=== PATIENT | female | born 1965 | race African-American/Black ===

== ENCOUNTER 2018-02-04 15:07 | Emergency (ER) | payer MEDICAID, OTHER ==
[2018-02-04] MEDS ORDERED: ACETAMINOPHEN 325 MG TABLET PO ONE (15:34)
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
--- NOTE | 2018-02-04 16:30 | RADIOLOGY REPORT (SQ) ---
EXAM DESCRIPTION: KNEE BILATERAL 1-2 VIEWS COMPLETED DATE/TIME: 02/04/2018 4:15 pm REASON FOR STUDY: fall COMPARISON: None. NUMBER OF VIEWS: Two-view right knee Two views left knee TECHNIQUE: AP and lateral radiographic images acquired of the right and left knee. LIMITATIONS: None. FINDINGS: MINERALIZATION: Normal. BONES: No acute fracture or dislocation. No worrisome bone lesions. JOINT: No effusion. SOFT TISSUES: No soft tissue swelling. No radio-opaque foreign body. OTHER: No other significant finding. IMPRESSION: NEGATIVE STUDY OF THE RIGHT AND LEFT KNEES. NO RADIOGRAPHIC EVIDENCE OF ACUTE INJURY. TECHNICAL DOCUMENTATION: JOB ID: [id number] [facility] [place]- All Rights Reserved Reading location - IP/workstation name: [email or web address]
[2018-02-04 16:32] LABS: AMORPHOUS SEDIMENT,URINE TRACE /HPF; APPEARANCE,URINE SLIGHTLY-CLOUDY; BILIRUBIN,URINE NEGATIVE (NEGATIVE); COLOR,URINE YELLOW; GLUCOSE, URINE NEGATIVE (NEGATIVE); KETONES,URINE NEGATIVE (NEGATIVE); LEUKOCYTE ESTERASE,URINE NEGATIVE (NEGATIVE); NITRITE,URINE NEGATIVE (NEGATIVE); PROTEIN,URINE NEGATIVE (NEGATIVE); URINE SPECIFIC GRAVITY 1.023
--- NOTE | 2018-02-04 16:32 | RADIOLOGY REPORT (SQ) ---
EXAM DESCRIPTION: L SPINE WHOLE COMPLETED DATE/TIME: 02/04/2018 4:15 pm REASON FOR STUDY: fall COMPARISON: 12/08/2015 NUMBER OF VIEWS: Five views including obliques. TECHNIQUE: AP, lateral, oblique, and sacral radiographic images acquired of the lumbar spine. LIMITATIONS: None. FINDINGS: MINERALIZATION: Normal. SEGMENTATION: Normal. No transitional anatomy. ALIGNMENT: Normal. VERTEBRAE: Maintained height. No fracture or worrisome bone lesion. DISCS: Mild disc space loss of height at L5-S1 and L4-5. POSTERIOR ELEMENTS: Pedicles and facets are intact. No pars defect or posterior arch defects. Mild bilateral facet arthropathy at L4-5 and L5-S1 HARDWARE: None in the spine. PARASPINAL SOFT TISSUES: Normal. PELVIS: Intact as visualized. No fractures or worrisome bone lesions. SI joints intact. OTHER: No other significant finding. IMPRESSION: No acute findings. TECHNICAL DOCUMENTATION: JOB ID: [id number] [employer]- All Rights Reserved Reading location - IP/workstation name: [email or web address]
[2018-02-04] MEDS ORDERED: LIDOCAINE 5% (700 MG) TRANSDERMAL ADH..PATCH TP ONE (16:43)
[2018-02-04 17:05] VITALS: BP 148/83
== END 2018-02-04 17:05 | disposition home or self-care (01) ==
LOC: ER 15:07
DX: M54.41 Lumbago with sciatica, right side (principal); M25.561 Pain in right knee; M25.562 Pain in left knee; W03.XXXA Other fall on same level due to collision with another person, initial encounter; Y99.0 Civilian activity done for income or pay; R50.9 Fever, unspecified; I10 Essential (primary) hypertension; Z85.43 Personal history of malignant neoplasm of ovary
CPT/HCPCS: 72110; 81001; 99283

== ENCOUNTER 2018-07-08 14:15 | Emergency (ER) | payer MEDICAID ==
--- NOTE | 2018-07-08 15:10 | RADIOLOGY REPORT (SQ) ---
EXAM DESCRIPTION: CHEST 2 VIEWS COMPLETED DATE/TIME: 07/08/2018 2:57 pm REASON FOR STUDY: palpitations COMPARISON: 11/23/2010 EXAM PARAMETERS: NUMBER OF VIEWS: two views TECHNIQUE: Digital Frontal and Lateral radiographic views of the chest acquired. RADIATION DOSE: NA LIMITATIONS: none FINDINGS: LUNGS AND PLEURA: No opacities, masses or pneumothorax. No pleural effusion. MEDIASTINUM AND HILAR STRUCTURES: No masses or contour abnormalities. HEART AND VASCULAR STRUCTURES: Heart normal size. No evidence for failure. BONES: No acute findings. HARDWARE: None in the chest. OTHER: No other significant finding. IMPRESSION: NO ACUTE RADIOGRAPHIC FINDING IN THE CHEST. TECHNICAL DOCUMENTATION: JOB ID: [id number] [employer]- All Rights Reserved Reading location - IP/workstation name: [email or web address]
[2018-07-08] MEDS ORDERED: ASPIRIN 81 MG TABLET, CHEWABLE PO ONE (15:20)
[2018-07-08] MEDS ORDERED: LISINOPRIL 10 MG TABLET PO ONE (15:56)
[2018-07-08] MEDS ORDERED: HYDROCHLOROTHIAZIDE 12.5 MG TABLET PO ONE (15:57)
--- NOTE | 2018-07-08 16:00 | ER Document Report ---
ED Blood Pressure Problem - General Mode of Arrival: Ambulatory Information source: Patient TRAVEL OUTSIDE OF THE [place] IN LAST 30 DAYS: No <TANYA CLARK - Last Filed: 07/08/18 16:15> <MEDHAT JOHNSON - Last Filed: 07/08/18 23:57> - General Chief Complaint: Chest Pain > 30 Stated Complaint: CHEST PAIN Time Seen by Provider: 07/08/18 15:19 Notes: 53-year-old female who presents to the emergency department today with complaints of elevated blood pressures. Patient states on Thursday at work her blood pressure was 177/101 and she had associated dizziness and a headache. Patient states today she went to an urgent care to get a note to be cleared to go back to work and after they performed an EKG she was sent here. Patient states she has continued to be dizzy with a headache over the last 2 or 3 days. Patient states she is out of her 12.5 mg lisinopril as her PCP, Mitul Pruitt , is no longer in the area. (TANYA CLARK) - Related Data Allergies/Adverse Reactions: No Known Allergies Allergy (Verified 07/08/18 14:16) Past Medical History - General Information source: Patient, [facility] Records - Social History Smoking Status: Former Smoker Cigarette use (# per day): No Frequency of alcohol use: Former drinker. None in 18 years. Lives with: Family Family History: Reviewed & Not Pertinent Patient has suicidal ideation: No Patient has homicidal ideation: No - Past Medical History Cardiac Medical History: Reports: Hx Hypertension Renal/ Medical History: Reports: Hx Ovarian Cysts Malignancy Medical History: Reports: Hx Ovarian Cancer - 1999 Past Surgical History: Reports: Hx Gynecologic Surgery, Hx Hysterectomy - Immunizations Hx Diphtheria, Pertussis, Tetanus Vaccination: Yes <TANYA CLARK - Last Filed: 07/08/18 16:15> Review of Systems - Review of Systems Constitutional: See HPI, Other - elevated blood pressures EENT: No symptoms reported Cardiovascular: See HPI, Dizziness Respiratory: No symptoms reported Gastrointestinal: No symptoms reported Genitourinary: No symptoms reported Female Genitourinary: No symptoms reported Musculoskeletal: No symptoms reported Skin: No symptoms reported Hematologic/Lymphatic: No symptoms reported Neurological/Psychological: See HPI, Headaches -: Yes All other systems reviewed and negative <TANYA CLARK - Last Filed: 07/08/18 16:15> Physical Exam - Vital signs Interpretation: Hypertensive - General General appearance: Appears well, Alert - HEENT Head: Normocephalic, Atraumatic Eyes: Normal Pupils: PERRL - Respiratory Respiratory status: No respiratory distress Chest status: Nontender Breath sounds: Normal Chest palpation: Normal - Cardiovascular Rhythm: Regular Heart sounds: Normal auscultation Murmur: No - Abdominal Inspection: Normal Distension: No distension Bowel sounds: Normal Tenderness: Nontender Organomegaly: No organomegaly - Back Back: Normal, Nontender - Extremities General upper extremity: Normal inspection, Nontender, Normal color, Normal ROM , Normal temperature General lower extremity: Normal inspection, Nontender, Normal color, Normal ROM , Normal temperature, Normal weight bearing. No: César's sign - Neurological Neuro grossly intact: Yes Cognition: Normal Orientation: AAOx4 [place] Coma Scale Eye Opening: Spontaneous [place] Coma Scale Verbal: Oriented [place] Coma Scale Motor: Obeys Commands [place] Coma Scale Total: 15 Speech: Normal Motor strength normal: LUE, RUE, LLE, RLE Sensory: Normal - Psychological Associated symptoms: Normal affect, Normal mood - Skin Skin Temperature: Warm Skin Moisture: Dry Skin Color: Normal <MEDHAT JOHNSON - Last Filed: 07/08/18 23:57> - Vital signs Vitals: Temp Pulse Resp BP Pulse Ox 98.1 F 64 16 167/91 H 99 07/08/18 14:36 07/08/18 14:36 07/08/18 14:36 07/08/18 14:36 07/08/18 14:36 Course - Laboratory Result Diagrams: 07/08/18 15:35 07/08/18 15:35 <TANYA CLARK - Last Filed: 07/08/18 16:15> - Laboratory Result Diagrams: 07/08/18 16:00 07/08/18 16:00 - Diagnostic Test Radiology reviewed: Reports reviewed - EKG Interpretation by [facility] EKG shows normal: Sinus rhythm Rate: Normal Rhythm: NSR <MEDHAT JOHNSON - Last Filed: 07/08/18 23:57> - Re-evaluation Re-evalutation: 07/08/18 Patient has been out of her blood pressure. Sent in from urgent care for chest pain for a month and high blood pressure. Repeat troponin and initial troponin negative. No acute changes on EKG. No symptoms in the emergency department. Blood pressure has down trended with initiation of patient's home medication. She will be discharged with a prescription for her previous blood pressure medication, lisinopril and hydrochlorothiazide. She is to follow-up with a primary care doctor when she is able. Understands and agrees with plan. Stable for discharge. Grateful for care (MEDHAT JOHNSON) - Vital Signs Vital signs: Temp Pulse Resp BP Pulse Ox 97.5 F 64 16 135/94 H 100 07/08/18 22:18 07/08/18 14:36 07/08/18 19:00 07/08/18 19:00 07/08/18 19:00 - Laboratory Laboratory results interpreted by me: 07/08/18 07/08/18 16:00 16:00 RDW 14.3 H Lymphocytes % 49.4 H Sodium 146.0 H Potassium 3.3 L Carbon Dioxide 33 H Creatine Kinase 137 H Total Protein 8.4 H Discharge <TANYA CLARK - Last Filed: 07/08/18 16:15> <EMDHAT JOHNSON - Last Filed: 07/08/18 23:57> - Discharge Clinical Impression: HTN (hypertension) Qualifiers: Hypertension type: unspecified Qualified Code(s): I10 - Essential (primary) hypertension Condition: Stable Disposition: HOME, SELF-CARE Instructions: High Blood Pressure ([facility]) Prescriptions: Lisinopril/Hydrochlorothiazide [Lisinopril-Hctz 10-12.5 mg Tab] 1 each PO DAILY #90 tablet Forms: Return to Work Scribe Attestation: 07/08/18 23:57 I personally performed the services described in the documentation, reviewed and edited the documentation which was dictated to the scribe in my presence, and it accurately records my words and actions. (MEDHAT JOHNSON) Scribe Documentation - Scribe Written by Jcarlos:: Jcarlos Rosas, 07/08/2018 1619 acting as scribe for :: Lonnie <TANYA CLARK - Last Filed: 07/08/18 16:15>
[2018-07-08 16:33] LABS: ABSOLUTE EOSINOPHILS # (AUTO) 0.1 10^3/uL (0.0-0.6); ABSOLUTE LYMPHOCYTES (AUTO) 3.3 10^3/uL (0.5-4.7); ABSOLUTE MONOCYTES (AUTO) 0.3 10^3/uL (0.1-1.4); ABSOLUTE NEUT (AUTO) 2.9 10^3/uL (1.7-8.2); BASOPHILS % (AUTO) 0.4 % (0-2); EOSINOPHILS % (AUTO) 1.4 % (0-6); HEMATOCRIT 38.5 % (36.0-47.0); HEMOGLOBIN 12.9 g/dL (12.0-15.5); LYMPHOCYTES % (AUTO) 49.4 % (13-45); MEAN CORPUSCULAR HEMOGLOBIN 28.1 pg (27.0-33.4); MEAN CORPUSCULAR HGB CONC 33.4 g/dL (32.0-36.0); MEAN CORPUSCULAR VOLUME 84 fl (80-97); MONOCYTES % (AUTO) 4.7 % (3-13); PLATELET COUNT 220 10^3/uL (150-450); RED BLOOD COUNT 4.58 10^6/uL (3.72-5.28); RED CELL DISTRIBUTION WIDTH 14.3 % (11.5-14.0); SEGMENTED NEUTROPHILS % (AUTO) 44.1 % (42-78); TOTAL CELLS COUNTED % (AUTO) 100 %; WHITE BLOOD COUNT 6.6 10^3/uL (4.0-10.5)
[2018-07-08 16:37] LABS: INTERNATIONAL RATION (INR) 0.92; PROTHROMBIN TIME 12.8 SEC (11.4-15.4)
[2018-07-08 16:47] LABS: ALANINE AMINOTRANSFERASE 19 U/L (9-52); ALBUMIN 4.7 g/dL (3.5-5.0); ALKALINE PHOSPHATASE 95 U/L (38-126); ANION GAP 11 (5-19); ASPARTATE AMINO TRANSFERASE 22 U/L (14-36); BILIRUBIN,DIRECT 0.2 mg/dL (0.0-0.4); BILIRUBIN,TOTAL 0.5 mg/dL (0.2-1.3); BLOOD UREA NITROGEN 12 mg/dL (7-20); CALCIUM 9.7 mg/dL (8.4-10.2); CARBON DIOXIDE 33 mmol/L (22-30); CHLORIDE 102 mmol/L (98-107); CREATINE KINASE 137 U/L (30-135); GLUCOSE 110 mg/dL (75-110); POTASSIUM 3.3 mmol/L (3.6-5.0); TOTAL PROTEIN 8.4 g/dL (6.3-8.2)
[2018-07-08 16:59] LABS: CREATINE KINASE MB 1.46 ng/mL (<4.55)
[2018-07-08 17:01] LABS: TROPONIN I < 0.012 ng/mL
[2018-07-08 19:27] VITALS: BP 135/94
--- NOTE | 2018-07-08 20:45 | EKG REPORT ---
SEVERITY:- ABNORMAL ECG - SINUS RHYTHM PROBABLE LEFT ATRIAL ABNORMALITY LEFT ANTERIOR FASCICULAR BLOCK LEFT VENTRICULAR HYPERTROPHY NONSPECIFIC T ABNORMALITIES, INFERIOR LEADS : Confirmed by: Tiesha Zaragoza MD 08-Jul-2018 20:44:15
== END 2018-07-08 22:24 | disposition home or self-care (01) ==
LOC: ER 14:15
DX: R07.9 Chest pain, unspecified (principal); I10 Essential (primary) hypertension; R42 Dizziness and giddiness; Z90.710 Acquired absence of both cervix and uterus
CPT/HCPCS: 36415; 71046; 80053; 82550; 82553; 84484; 85025; 85610; 93005; 93010; 99285

== ENCOUNTER → 2019-03-08 | Outpatient (CLI) | payer MEDICAID ==
--- NOTE | 2019-03-08 13:28 | RADIOLOGY REPORT (SQ) ---
EXAM DESCRIPTION: LUMBAR SPINE COMPLETE COMPLETED DATE/TIME: 03/08/2019 12:53 pm REASON FOR STUDY: LUMBAGO WITH SCIATICA, UNSPECIFIED SIDE M54.40 LUMBAGO WITH SCIATICA, UNSPECIFIED SIDE M17.0 BILATERAL PRIMARY OSTEOARTHRITIS OF KNEE COMPARISON: None. NUMBER OF VIEWS: Five views including obliques. TECHNIQUE: AP, lateral, oblique, and sacral radiographic images acquired of the lumbar spine. LIMITATIONS: None. FINDINGS: MINERALIZATION: Normal. SEGMENTATION: Normal. No transitional anatomy. ALIGNMENT: Normal. VERTEBRAE: Maintained height. No fracture or worrisome bone lesion. DISCS: Disc spaces are narrowed from L4-S1. POSTERIOR ELEMENTS: Pedicles and facets are intact. No pars defect or posterior arch defects. HARDWARE: None in the spine. PARASPINAL SOFT TISSUES: Normal. PELVIS: Intact as visualized. No fractures or worrisome bone lesions. SI joints intact. OTHER: No other significant finding. IMPRESSION: Degenerative disc disease. TECHNICAL DOCUMENTATION: JOB ID: [id number] [employer]- All Rights Reserved Reading location - IP/workstation name: [email or web address]
--- NOTE | 2019-03-08 13:29 | RADIOLOGY REPORT (SQ) ---
EXAM DESCRIPTION: KNEE BILAT AP UPRIGHT COMPLETED DATE/TIME: 03/08/2019 12:53 pm REASON FOR STUDY: BILATERAL PRIMARY OSTEOARTHRITIS OF KNEE M54.40 LUMBAGO WITH SCIATICA, UNSPECIFIE D SIDE M17.0 BILATERAL PRIMARY OSTEOARTHRITIS OF KNEE COMPARISON: None. NUMBER OF VIEWS: One view TECHNIQUE: AP standing bilateral knees. LIMITATIONS: None. FINDINGS: MINERALIZATION: Normal. RIGHT KNEE BONES: No acute fracture. No worrisome bone lesions. MEDIAL COMPARTMENT: No significant osteophytes. No joint space narrowing. No chondrocalcinosis. LATERAL COMPARTMENT: No significant osteophytes. No joint space narrowing. No chondrocalcinosis. PATELLOFEMORAL COMPARTMENT: No significant osteophytes. No joint space narrowing. No chondrocalc inosis. LEFT KNEE BONES: No acute fracture. No worrisome bone lesions. MEDIAL COMPARTMENT: No significant osteophytes. No joint space narrowing. No chondrocalcinosis. LATERAL COMPARTMENT: No significant osteophytes. No joint space narrowing. No chondrocalcinosis. PATELLOFEMORAL COMPARTMENT: No significant osteophytes. No joint space narrowing. No chondrocalc inosis. IMPRESSION: NEGATIVE STUDY OF THE STANDING LEFT AND RIGHT KNEES. NO SIGNIFICANT JOINT SPACE NARROWIN G OR OTHER SIGNS OF ARTHRITIS. TECHNICAL DOCUMENTATION: JOB ID: [id number] [employer]- All Rights Reserved Reading location - IP/workstation name: [email or web address]
== END ==
LOC: OD 12:23
PROVIDERS: ATTEND Internal Medicine
DX: M51.36 Other intervertebral disc degeneration, lumbar region (principal); M54.40 Lumbago with sciatica, unspecified side; M17.0 Bilateral primary osteoarthritis of knee
CPT/HCPCS: 72110; 73565

== ENCOUNTER 2019-03-21 22:25 | Emergency (ER) | payer MEDICAID ==
[2019-03-21 23:25] VITALS: BP 153/85
== END 2019-03-22 01:00 | disposition left against medical advice (07) ==
LOC: ER 22:25
DX: Z53.21 Procedure and treatment not carried out due to patient leaving prior to being seen by health care provider (principal); T78.40XA Allergy, unspecified, initial encounter

== ENCOUNTER 2019-03-27 14:43 | Emergency (ER) | payer OTHER, MEDICAID ==
[2019-03-27] MEDS ORDERED: ACETAMINOPHEN 325 MG TABLET PO ONE (16:50)
[2019-03-27] MEDS ORDERED: BENZONATATE 100 MG CAPSULE PO ONE (16:52)
[2019-03-27] MEDS ORDERED: DEXAMETHASONE SOD PHOS INJ 10 MG/1 ML VIAL IM ONE (16:55)
--- NOTE | 2019-03-27 16:56 | ER Document Report ---
ED General - General Chief Complaint: Pain All Over Stated Complaint: POSSIBLE ALLERGIC REACTION Time Seen by Provider: 03/27/19 16:33 Primary Care Provider: SHERITA MENDOZA MD [Primary Care Provider] - Follow up as needed Notes: Patient is a 53-year-old female with a history of hypertension who presents to the emergency department with body aches. Patient states that last Thursday night she checked into the emergency department for possible allergic reaction as she developed hives after taking ibuprofen and eating blue crab. Patient states that it was busy and she left prior to being seen. Patient states she was not treated but that the hives and rash did go away. Patient states she is continued to take the ibuprofen that was given to her by her primary care physician for back pain and arthritis without any allergic reaction or rash. Patient states that potentially could have been the blue crab. Patient states since Thursday she has had body aches, low back pain, productive cough with clear sputum, a feeling of congestion with runny nose, sore throat. Patient states she has had a decreased appetite. Patient denies abdominal pain. Patient denies diarrhea. Patient states that the cough is worse at night and is difficult to sleep as she is continuously coughing. Patient denies neck pain. Patient denies fever at home. TRAVEL OUTSIDE OF THE [place] IN LAST 30 DAYS: No - Related Data Allergies/Adverse Reactions: No Known Allergies Allergy (Verified 03/27/19 14:45) Past Medical History - General Information source: Patient - Social History Smoking Status: Never Smoker Lives with: Family Family History: Reviewed & Not Pertinent - Past Medical History Cardiac Medical History: Reports: Hx Hypertension Pulmonary Medical History: Reports: None EENT Medical History: Reports: None Neurological Medical History: Reports: None Endocrine Medical History: Reports: None Renal/ Medical History: Reports: Hx Ovarian Cysts. Denies: Hx Peritoneal Dialysis Malignancy Medical History: Reports: Hx Ovarian Cancer - 1999 GI Medical History: Reports: None Musculoskeletal Medical History: Reports None Skin Medical History: Reports None Psychiatric Medical History: Reports: None Traumatic Medical History: Reports: None Infectious Medical History: Reports: None Past Surgical History: Reports: Hx Gynecologic Surgery, Hx Hysterectomy - Immunizations Hx Diphtheria, Pertussis, Tetanus Vaccination: Yes Review of Systems - Review of Systems Constitutional: See HPI EENT: See HPI Cardiovascular: No symptoms reported Respiratory: See HPI Gastrointestinal: See HPI Genitourinary: No symptoms reported Female Genitourinary: No symptoms reported Musculoskeletal: See HPI Skin: No symptoms reported Hematologic/Lymphatic: No symptoms reported Neurological/Psychological: No symptoms reported Physical Exam - Vital signs Vitals: Temp Pulse Resp BP Pulse Ox 99.5 F 93 16 150/90 H 96 03/27/19 14:53 03/27/19 14:53 03/27/19 14:53 03/27/19 14:53 03/27/19 14:53 Interpretation: Hypertensive - Notes Notes: GENERAL: Well-appearing, well-nourished and in no acute distress. HEAD: Atraumatic, normocephalic. EYES: Pupils equal round and reactive to light, extraocular movements intact, sclera anicteric, conjunctiva are normal. ENT: Outer portion of the TM's reddened without bulging bilaterally, nares patent, oropharynx clear without exudates or edema. + tonsillar hypertrophy with exudate bilaterally, no uvula edema. Moist mucous membranes. NECK: Normal range of motion, supple, + cervical lymphadenopathy. or JVD. LUNGS: Breath sounds clear to auscultation bilaterally and equal. No wheezes or rales. Rhonchi present but cleared with cough. HEART: Regular rate and rhythm without murmurs, rubs or gallops. No reproducible chest pain. ABDOMEN: Soft, nontender, normoactive bowel sounds. No guarding, no rebound. No masses appreciated. BACK: No cervical, thoracic, lumbar midline tenderness. No saddle anesthesia, normal distal neurovascular exam. No CVA tenderness. GENITOURINARY: Deferred. EXTREMITIES: Normal range of motion, no pitting or edema. No clubbing or cyanosis. NEUROLOGICAL: Cranial nerves II through XII grossly intact. Normal speech, normal gait. PSYCH: Normal mood, normal affect. SKIN: Warm, Dry, normal turgor, no rashes or lesions noted. Course - Re-evaluation Re-evalutation: 03/27/19 18:00 Upon reevaluation patient is resting comfortably on stretcher. Patient's chest x-ray was suspicious for an pneumonia in the left upper lobe. I will treat the patient with doxycycline for 5 days and have her follow-up with Dr. Mendoza early this week as this is her primary care physician. I did discuss this with the patient and she is agrees with this plan. Patient to return to the emergency department for fever, shortness of breath or any other concerning signs or symptoms. I did inform the patient she had a small amount of blood in the urine without infection. I did inform the patient to follow-up with her primary care physician to have a repeat urinalysis performed. - Vital Signs Vital signs: Temp Pulse Resp BP Pulse Ox 100.1 F 93 16 150/90 H 96 03/27/19 16:05 03/27/19 14:53 03/27/19 14:53 03/27/19 14:53 03/27/19 14:53 - Laboratory Laboratory results interpreted by me: 03/27/19 16:55 Urine Protein 30 H Urine Blood MODERATE H Urine Urobilinogen 2.0 H - Diagnostic Test Radiology reviewed: Image reviewed, Reports reviewed Discharge - Discharge Clinical Impression: Chills, Sore throat (viral) Pneumonia Qualifiers: Pneumonia type: due to unspecified organism Laterality: left Lung location: upper lobe of lung Qualified Code(s): J18.1 - Lobar pneumonia, unspecified organism Pharyngitis Qualifiers: Pharyngitis/tonsillitis etiology: unspecified etiology Qualified Code(s): J02.9 - Acute pharyngitis, unspecified Condition: Stable Disposition: HOME, SELF-CARE Additional Instructions: Today he was seen in the emergency department for fever, chills, body aches and cough. The chest x-ray did show a pneumonia in the left upper lobe. He will be treated with a course of doxycycline. It is important to follow-up with your primary care physician Dr. Mendoza early this week for repeat evaluation. Please return to the emergency department for any worsening signs or symptoms to include high fever, shortness of breath, chest pain or any other concerning signs or symptoms. Please take Tylenol and ibuprofen as needed for body aches and chills. Doxycycline Doxycycline (Vibramycin, Doryx) is an antibiotic of the tetracycline family. This type of drug is useful for infections of the respiratory tract and genital tract, and is sometimes used for intestinal infections. Unlike most tetracyclines, doxycycline can be taken with food. It is longer acting, and (usually) less prone to side effects than regular tetracycline. Tetracycline antibiotics can stain immature teeth and SHOULD NOT BE TAKEN BY CHILDREN, NURSING MOTHERS, OR WOMEN. Tetracyclines can make you more prone to sunburn. Abdominal cramping, nausea, and diarrhea are occasional side effects. Women may experience vaginal yeast infections. Call the doctor at once if you develop hives, itching, shortness of breath, or lightheadedness. Pneumonia Your examination indicates that you have pneumonia. This is an infection of the lung tissue, usually caused by bacteria or a virus. Symptoms include cough, fever, shaking chills, chest pain, shortness of breath, and coughing up bloody sputum. Treatment for bacterial pneumonia includes rest, antibiotics for 10 to 14 days, increasing your clear liquid intake, a cool mist humidifier at your bedside, and fever medication. Often, a repeat chest X-ray is performed in a few weeks--even if you feel better--to ascertain whether the infection has completely resolved and no underlying lung problem is present. You should call the physician if you develop persistent vomiting, high fever that does not respond to fever medication, increasing shortness of breath, confusion, or lethargy. Also, failure to improve within two to three days is an indication for re-examination. Prescriptions: Benzonatate [Tessalon Perles 100 mg Capsule] 100 mg PO Q8HP PRN #40 capsule PRN Reason: Doxycycline Hyclate 100 mg PO BID #10 capsule Referrals: SHERITA MENDOZA MD [Primary Care Provider] - Follow up as needed
--- NOTE | 2019-03-27 17:14 | RADIOLOGY REPORT (SQ) ---
EXAM DESCRIPTION: CHEST 2 VIEWS COMPLETED DATE/TIME: 03/27/2019 5:05 pm REASON FOR STUDY: productive cough, low grade fever COMPARISON: 07/08/2018 TECHNIQUE: Frontal and lateral radiographic views of the chest acquired. NUMBER OF VIEWS: Two view. LIMITATIONS: None. FINDINGS: LUNGS AND PLEURA: No pneumothorax. Small area of patchy airspace disease in the left uppe r lobe. No pleural effusion. MEDIASTINUM AND HILAR STRUCTURES: Stable. HEART AND VASCULAR STRUCTURES: Stable. BONES: No acute findings. HARDWARE: None in the chest. OTHER: No other significant finding. IMPRESSION: Small area of patchy airspace disease in the left upper lobe. No pleural effusion. TECHNICAL DOCUMENTATION: JOB ID: [id number] [employer]- All Rights Reserved Reading location - IP/workstation name: [email or web address]
[2019-03-27 17:25] LABS: APPEARANCE,URINE SLIGHTLY-CLOUDY; BILIRUBIN,URINE NEGATIVE (NEGATIVE); COLOR,URINE AMBER; GLUCOSE, URINE NEGATIVE (NEGATIVE); KETONES,URINE NEGATIVE (NEGATIVE); LEUKOCYTE ESTERASE,URINE NEGATIVE (NEGATIVE); NITRITE,URINE NEGATIVE (NEGATIVE); PROTEIN,URINE 30 mg/dL (NEGATIVE); URINE SPECIFIC GRAVITY 1.023
[2019-03-27] MEDS ORDERED: DOXYCYCLINE HYCLATE 100 MG TABLET PO ONE (18:06)
[2019-03-27 18:15] VITALS: BP 154/90
== END 2019-03-27 18:20 | disposition home or self-care (01) ==
LOC: ER 14:43
DX: J02.8 Acute pharyngitis due to other specified organisms (principal); B97.89 Other viral agents as the cause of diseases classified elsewhere; J18.1 Lobar pneumonia, unspecified organism; J35.1 Hypertrophy of tonsils; R68.83 Chills (without fever); M54.5 Low back pain; R05 Cough; R09.89 Other specified symptoms and signs involving the circulatory and respiratory systems; R63.0 Anorexia; I10 Essential (primary) hypertension; M19.90 Unspecified osteoarthritis, unspecified site
CPT/HCPCS: 99283; 96372; 87070; 87880; 81001; 71046; J1100

== ENCOUNTER 2019-10-09 18:27 | Emergency (ER) | payer OTHER, MEDICAID ==
[2019-10-09] MEDS ORDERED: ASPIRIN 81 MG TABLET, CHEWABLE PO ONE (18:39)
--- NOTE | 2019-10-09 18:42 | ER Document Report ---
ED Medical Screen (RME) - General Chief Complaint: Chest Pain Stated Complaint: CHEST PAIN Time Seen by Provider: 10/09/19 18:35 Primary Care Provider: SHERITA MENDOZA MD [Primary Care Provider] - Follow up as needed Notes: Patient is a 54-year-old female who presents to the emergency department with a chief complaint of chest pain. Her chest pain started around 1750 this evening. She states that she went to go lay down and she ended up having a sharp pain to the anterior right side of her chest that radiated up to her right shoulder. Patient has history of hypertension. She states that she has not been feeling well since Thursday. Exam: S1, S2. Tenderness upon palpation to anterior chest. I have greeted and performed a rapid initial assessment of this patient. A comprehensive ED assessment and evaluation of the patient, analysis of test results and completion of medical decision making process will be conducted by an additional ED providers. TRAVEL OUTSIDE OF THE [place] IN LAST 30 DAYS: No - Related Data Allergies/Adverse Reactions: No Known Allergies Allergy (Verified 10/09/19 18:35) Past Medical History - Past Medical History Cardiac Medical History: Reports: Hx Hypertension Renal/ Medical History: Reports: Hx Ovarian Cysts. Denies: Hx Peritoneal Dialysis Malignancy Medical History: Reports: Hx Ovarian Cancer - 1999 Past Surgical History: Reports: Hx Gynecologic Surgery, Hx Hysterectomy - Immunizations Hx Diphtheria, Pertussis, Tetanus Vaccination: Yes Doctor's Discharge - Discharge Referrals: SHERITA MENDOZA MD [Primary Care Provider] - Follow up as needed
[2019-10-09 19:08] LABS: ABSOLUTE LYMPHOCYTES (AUTO) 3.1 10^3/uL (0.5-4.7); ABSOLUTE MONOCYTES (AUTO) 0.3 10^3/uL (0.1-1.4); ABSOLUTE NEUT (AUTO) 3.1 10^3/uL (1.7-8.2); BASOPHILS % (AUTO) 0.3 % (0-2); EOSINOPHILS % (AUTO) 0.7 % (0-6); HEMATOCRIT 37.6 % (36.0-47.0); HEMOGLOBIN 12.8 g/dL (12.0-15.5); LYMPHOCYTES % (AUTO) 47.2 % (13-45); MEAN CORPUSCULAR HEMOGLOBIN 27.9 pg (27.0-33.4); MEAN CORPUSCULAR VOLUME 82 fl (80-97); MONOCYTES % (AUTO) 5.2 % (3-13); PLATELET COUNT 213 10^3/uL (150-450); RED BLOOD COUNT 4.58 10^6/uL (3.72-5.28); RED CELL DISTRIBUTION WIDTH 14.8 % (11.5-14.0); SEGMENTED NEUTROPHILS % (AUTO) 46.6 % (42-78); TOTAL CELLS COUNTED % (AUTO) 100 %; WHITE BLOOD COUNT 6.6 10^3/uL (4.0-10.5)
--- NOTE | 2019-10-09 19:08 | RADIOLOGY REPORT (SQ) ---
EXAM DESCRIPTION: CHEST SINGLE VIEW COMPLETED DATE/TIME: 10/09/2019 6:59 pm REASON FOR STUDY: chest pain COMPARISON: Chest radiographs 03/27/2019 EXAM PARAMETERS: NUMBER OF VIEWS: One view. TECHNIQUE: Single frontal radiographic view of the chest acquired. RADIATION DOSE: NA LIMITATIONS: None. FINDINGS: LUNGS AND PLEURA: No opacities, masses or pneumothorax. No pleural effusion. MEDIASTINUM AND HILAR STRUCTURES: Unchanged contours. HEART AND VASCULAR STRUCTURES: Heart normal in size. Tortuosity of the thoracic aorta. BONES: No acute findings. HARDWARE: None in the chest. OTHER: No other significant finding. IMPRESSION: No acute pulmonary findings. TECHNICAL DOCUMENTATION: JOB ID: [id number] [employer]- All Rights Reserved Reading location - IP/workstation name: [email or web address]
[2019-10-09 19:22] LABS: ALBUMIN 4.4 g/dL (3.5-5.0); ALKALINE PHOSPHATASE 77 U/L (38-126); ANION GAP 8 (5-19); ASPARTATE AMINO TRANSFERASE 27 U/L (14-36); BILIRUBIN,TOTAL 0.2 mg/dL (0.2-1.3); BLOOD UREA NITROGEN 14 mg/dL (7-20); CALCIUM 9.3 mg/dL (8.4-10.2); CARBON DIOXIDE 33 mmol/L (22-30); CHLORIDE 101 mmol/L (98-107); CREATINE KINASE 156 U/L (30-135); GLUCOSE 112 mg/dL (75-110); TOTAL PROTEIN 7.9 g/dL (6.3-8.2)
--- NOTE | 2019-10-09 19:27 | ER Document Report ---
ED General - General Chief Complaint: Chest Pain Stated Complaint: CHEST PAIN Time Seen by Provider: 10/09/19 18:35 Primary Care Provider: SHERITA MENDOZA MD [Primary Care Provider] - Follow up as needed Information source: Patient Notes: 54-year-old female arrives by POV with chief complaint of right lateral neck and right anterior chest pain which worsens upon movement sneezing coughing and palpation. Patient reports she awoke Riley feeling feverish and aching all over as if she had the flu. She does have a 2-year-old 6-year-old a 7-year-old and a 26-year-old in her house. This is from the daughter who lost her children and she now keeps them. Denies any overuse but does admit to picking up the 2-year-old periodically. She is right-hand dominant. She denies any sore throat cephalgia nuchal rigidity or productive cough. No family members sick with URI symptoms. Does take HCTZ and her blood pressure medicine TRAVEL OUTSIDE OF THE [place] IN LAST 30 DAYS: No - HPI Onset: This afternoon - Related Data Allergies/Adverse Reactions: No Known Allergies Allergy (Verified 10/09/19 18:35) Past Medical History - General Information source: Patient - Social History Smoking Status: Former Smoker Cigarette use (# per day): No Chew tobacco use (# tins/day): No Smoking Education Provided: No Frequency of alcohol use: None Drug Abuse: None Lives with: Alone Family History: Reviewed & Not Pertinent Patient has suicidal ideation: No Patient has homicidal ideation: No - Past Medical History Cardiac Medical History: Reports: Hx Hypertension - Patient's blood pressure is 138/88 in room upon my examination of her at 19 Renal/ Medical History: Reports: Hx Ovarian Cysts. Denies: Hx Peritoneal Dialysis Malignancy Medical History: Reports: Hx Ovarian Cancer - 1999 Past Surgical History: Reports: Hx Gynecologic Surgery, Hx Hysterectomy - Immunizations Hx Diphtheria, Pertussis, Tetanus Vaccination: Yes Review of Systems - Review of Systems Constitutional: See HPI, Malaise, Weakness EENT: No symptoms reported Cardiovascular: See HPI, Chest pain, Other - palpable right chest pain Respiratory: No symptoms reported Gastrointestinal: No symptoms reported Genitourinary: No symptoms reported Female Genitourinary: No symptoms reported Musculoskeletal: No symptoms reported Skin: No symptoms reported Hematologic/Lymphatic: No symptoms reported Neurological/Psychological: No symptoms reported Physical Exam - Vital signs Vitals: Temp Pulse Resp BP Pulse Ox 98.5 F 70 16 140/86 H 100 10/09/19 18:39 10/09/19 18:39 10/09/19 18:39 10/09/19 18:39 10/09/19 18:39 Interpretation: Normal - General General appearance: Appears well - HEENT Head: Normocephalic Eyes: Normal Conjunctiva: Normal Cornea: Normal Extraocular movements intact: Yes Eyelashes: Normal Pupils: PERRL Sinus: Normal Nasal: Normal Mouth/Lips: Normal Mucous membranes: Normal Pharynx: Normal Neck: Other - Tenderness to right lateral neck musculature on palpation range of motion - Respiratory Respiratory status: No respiratory distress Chest status: Tender - Right anterior chest pectoral pain on palpation and range of motion of right lateral neck Breath sounds: Normal Chest palpation: Normal - Cardiovascular Rhythm: Regular Heart sounds: Normal auscultation Murmur: No Friction rub: No Amy's crunch: No - Abdominal Inspection: Normal Distension: No distension Bowel sounds: Normal Tenderness: Nontender Organomegaly: No organomegaly - Genitourinary External exam: Normal - Back Back: Normal - Extremities General upper extremity: Normal inspection General lower extremity: Normal inspection - Neurological Neuro grossly intact: Yes Cognition: Normal Orientation: AAOx4 Harriet Coma Scale Eye Opening: Spontaneous Harriet Coma Scale Verbal: Oriented [place] Coma Scale Motor: Obeys Commands Harriet Coma Scale Total: 15 Speech: Normal Cranial nerves: Normal Cerebellar coordination: Normal - Psychological Associated symptoms: Normal affect - Skin Skin Temperature: Warm Skin Moisture: Dry Course - Vital Signs Vital signs: Temp Pulse Resp BP Pulse Ox 98.5 F 70 16 140/86 H 100 10/09/19 18:39 10/09/19 18:39 10/09/19 18:39 10/09/19 18:39 10/09/19 19:26 - Laboratory Result Diagrams: 10/09/19 18:52 10/09/19 18:52 Laboratory results interpreted by me: 10/09/19 10/09/19 18:52 18:52 RDW 14.8 H Lymph % (Auto) 47.2 H Potassium 3.0 L* Carbon Dioxide 33 H Glucose 112 H Creatine Kinase 156 H - Diagnostic Test Radiology reviewed: Reports reviewed - EKG Interpretation by Me EKG shows normal: Sinus rhythm Rate: Normal Rhythm: Other - Left anterior fascicular block left ventricular hypertrophy nonspecific T abnormalities in sinus rhythm Critical Care Note - Critical Care Note Total time excluding time spent on procedures (mins): 90 Comments: 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 Discharge - Discharge Clinical Impression: Chest pain at rest, Hypokalemia, Elevated CPK Neck muscle strain Qualifiers: Encounter type: initial encounter Qualified Code(s): S16.1XXA - Strain of muscle, fascia and tendon at neck level, initial encounter Disposition: HOME, SELF-CARE Additional Instructions: Follow-up with personal doctor this week; return to ER as needed; take medicines as directed; encourage fluids Prescriptions: Etodolac [Lodine] 400 mg PO BID #14 tablet Potassium Chloride 20 meq PO DAILY #15 tablet.er Magnesium Chloride [Slow-Mag] 71.5 mg PO DAILY #1 bottle Forms: Return to Work Referrals: SHERITA MENDOZA MD [Primary Care Provider] - Follow up as needed
[2019-10-09] MEDS ORDERED: DEXAMETHASONE SOD PHOS INJ 10 MG/1 ML VIAL IV ONE (19:32)
[2019-10-09] MEDS ORDERED: KETOROLAC TROMETHAMINE INJ/PF 30 MG/1 ML SDV IV ONE (19:32)
[2019-10-09] MEDS ORDERED: DEXTROSE 10%-1/4 NORMAL SALINE 250 ML with POTASSIUM CHLORIDE 2.5 MEQ IV PRN ×2 (19:32)
[2019-10-09] MEDS ORDERED: POTASSI CL 20 MEQ/50 ML RIDER 20 MEQ/50 ML RTUPB IV ONE (20:22)
[2019-10-09 22:19] VITALS: BP 121/58
--- NOTE | 2019-10-10 00:18 | EKG REPORT ---
SEVERITY:- ABNORMAL ECG - SINUS RHYTHM PROBABLE LEFT ATRIAL ABNORMALITY LEFT ANTERIOR FASCICULAR BLOCK LEFT VENTRICULAR HYPERTROPHY NONSPECIFIC T ABNORMALITIES, INFERIOR LEADS BORDERLINE PROLONGED QT INTERVAL : Confirmed by: Harmony Miles 10-Oct-2019 00:16:21
== END 2019-10-09 22:42 | disposition home or self-care (01) ==
LOC: ER 18:27
DX: S16.1XXA Strain of muscle, fascia and tendon at neck level, initial encounter (principal); X58.XXXA Exposure to other specified factors, initial encounter; R07.9 Chest pain, unspecified; R79.89 Other specified abnormal findings of blood chemistry; R53.81 Other malaise; R53.1 Weakness; Z90.710 Acquired absence of both cervix and uterus; E87.6 Hypokalemia
CPT/HCPCS: 93005; 36415; 82550; 83690; 85025; 80053; 84484; 71045; 93010; J1885; J3480; J1100; 96365; 96366; 96375; 99291; 99292